=== PATIENT | female | born 1935 | race Caucasian/White ===

== ENCOUNTER 2016-04-26 09:42 | Emergency (ER) | payer MEDICARE, BC ==
[~2016-04-26] VITALS: Ht 165.1 cm; Wt 60.1 kg
[~2016-04-26 09:42] MED LIST: ASPI325T6; ASPI325T6 PO; COZAAR100 MG PO; FERROUS SULFAT200 M1; FOLIC ACID 40400 MCG PO; FOLIC ACID800 MCG PO; IRON325 M1 PO; LEG CRAMPS PO; LOFIBRA160 MG PO; MACRODANTIN100; MELOXICAM; MILK OF MA400 MG/52 PO; MOBIC 7.5MG7.5 MG PO; NEURONTIN100 MG/CAP PO; NO HOME MEDICATIONS; NORCO 325 MG-51 TAB PO; NORCO 325 MG-7.1 TAB PO; PRILOSEC 20MG20 MG PO; REFRESH TEARS 115 ML OP; ROXICODONE 55 MG/TAB PO; SENOKOT8.6 MG PO; TENORMIN100 MG PO; TOPROL XL25 MG PO; TYLENOL 500MG500 MG PO; ULTRAM 50MG TAB50 MG PO; VITAMIN C500 MG PO; XOPENEX HF0.045 MG/A IH; ZETIA 10MG TAB10 MG PO; ZETIA10 MG PO; ZYRTEC 10MG10 MG PO; [UNRECOGNIZED DRUG - OTHER]; [UNRECOGNIZED DRUG - OTHER] PO; evista; quinine; triglyceride med
[2016-04-26 09:46] VITALS: TEMP 98.5
[2016-04-26] MEDS ORDERED: MOBIC 7.5MG7.5 MG (10:54)
[2016-04-26] MEDS ORDERED: [UNRECOGNIZED DRUG - OTHER] (10:55)
[2016-04-26 11:05] LABS: BASO % 0.5 % (0.0-2.0); EOS # 0.2 (0.0-0.7); EOS % 2.9 % (0-4.0); GRAN # 4.8 (1.4-6.5); GRAN % 71.6 % (42.2-75.2); LYMPH # 0.9 (1.2-3.4); LYMPH % 13.9 % (20.0-51.0); MEAN CELL VOLUME 85 fl (80.0-100.0); MEAN CORPUSCULAR HEMOGLOBIN 30 pg (27.0-31.0); MEAN CORPUSCULAR HGB CONC 35 g/dl (33.0-37.0); MEAN PLATELET VOLUME 9.5 fl (7.4-10.4); MONO # 0.7 (0.1-0.6); MONO % 10.6 % (1.7-9.3); PLATELET COUNT 245 K/mm3 (130-400); RED BLOOD COUNT 4.06 M/mm3 (4.10-5.30); REDCELL DISTRIBUTION WIDTH-CV 12.7 % (11.5-14.5); WHITE BLOOD COUNT 6.6 K/mm3 (4.8-10.8)
[2016-04-26 11:06] LABS: HEMATOCRIT 34.6 % (37.0-47.0)
[2016-04-26 11:20] LABS: ADJUSTED CALCIUM 9.4 mg/dL (8.4-10.2); ALBUMIN 3.7 gm/dL (3.5-5.0); BILIRUBIN,TOTAL 0.8 mg/dL (0.0-1.0); CALCIUM 9.2 mg/dL (8.4-10.2); CREATININE, serum 1.66 mg/dL (0.52-1.25); POTASSIUM 4.1 mmol/L (3.4-5.0); TOTAL PROTEIN 6.7 gm/dL (6.4-8.2)
[2016-04-26] MEDS ORDERED: ZOFRAN ODT4 MG PO (12:05)
[2016-04-26 12:07] VITALS: BP 115/97; PULSE 61
[2016-04-26 13:32] LABS: PH 5 (5-8); SQUAMOUS EPITHELIAL 0-2 /hpf; URINE APPEARANCE Clear; URINE BACTERIA None Seen /hpf; URINE BILIRUBIN Negative (NEGATIVE); URINE BLOOD Negative (NEGATIVE); URINE COLOR Straw; URINE GLUCOSE Negative (NEGATIVE); URINE KETONE Negative (NEGATIVE); URINE RBC 0-2 /hpf; URINE UROBILINOGEN Negative (NEGATIVE); URINE WBC 0-2 /hpf
== END 2016-04-26 12:39 | disposition home or self-care (01) ==
LOC: COL.ER 09:42
PROVIDERS: Family Medicine
DX: K52.9 Noninfective gastroenteritis and colitis, unspecified (principal); I10 Essential (primary) hypertension
CPT/HCPCS: J2405; J7030

== ENCOUNTER → 2017-04-11 | Outpatient (CLI) | payer MEDICARE, BC ==
[~2017-04-11] MED LIST changes: +MOBIC 7.5MG7.5 MG; +ZOFRAN ODT4 MG PO; +[UNRECOGNIZED DRUG - OTHER]
== END ==
LOC: MC.RAD 10:38
DX: Z12.31 Encounter for screening mammogram for malignant neoplasm of breast (principal)

== ENCOUNTER → 2017-05-12 | Outpatient (CLI) | payer MEDICARE, BC | LOC: COL.RAD 11:51 | DX: N26.1 Atrophy of kidney (terminal) (principal); N32.89 Other specified disorders of bladder ==

== ENCOUNTER 2018-01-10 09:57 | Inpatient (IN) | payer MEDICARE, BC ==
[~2018-01-10] VITALS: Ht 165.1 cm; Wt 69.8 kg
[2018-01-10] MEDS ORDERED: BENADRYL25 M2 PO (10:08)
[2018-01-10] MEDS ORDERED: PREDNISONE10 MG PO (10:12)
[2018-01-10 10:35] LABS: BASO % 0.3 % (0.0-2.0); EOS # 0.1 (0.0-0.7); EOS % 0.8 % (0-4.0); GRAN % 83.3 % (42.2-75.2); HEMATOCRIT 38.1 % (37.0-47.0); HEMOGLOBIN 12.7 g/dl (12.5-16.0); LYMPH % 8.7 % (20.0-51.0); MEAN CELL VOLUME 94 fl (80.0-100.0); MEAN CORPUSCULAR HEMOGLOBIN 31 pg (27.0-31.0); MEAN CORPUSCULAR HGB CONC 33 g/dl (33.0-37.0); MONO # 0.7 (0.1-0.6); MONO % 5.7 % (1.7-9.3); PLATELET COUNT 164 K/mm3 (130-400); RED BLOOD COUNT 4.07 M/mm3 (4.10-5.30); REDCELL DISTRIBUTION WIDTH-CV 13.8 % (11.5-14.5)
[2018-01-10 10:42] LABS: PROTHROMBIN TIME 11.4 SECONDS (9.7-12.8)
[2018-01-10 10:45] LABS: ALBUMIN 4.2 gm/dL (3.5-5.0); BILIRUBIN,TOTAL 0.9 mg/dL (0.0-1.0); CALCIUM 9.6 mg/dL (8.4-10.2); CREATININE, serum 1.14 mg/dL (0.52-1.25); POTASSIUM 4.6 mmol/L (3.4-5.0); TOTAL PROTEIN 7.1 gm/dL (6.4-8.2)
[2018-01-10 12:48] VITALS: BP 135/74; PULSE 77; TEMP 99.2
[2018-01-10 21:02] VITALS: BP 135/70; PULSE 70; TEMP 98
[2018-01-11 01:03] VITALS: BP 143/78; PULSE 78; TEMP 99.7
[2018-01-11 04:45] VITALS: BP 151/63; PULSE 63; TEMP 98.3
[2018-01-11 06:26] LABS: BASO % 0.2 % (0.0-2.0); EOS # 0.1 (0.0-0.7); EOS % 0.9 % (0-4.0); GRAN # 7.8 (1.4-6.5); GRAN % 83.6 % (42.2-75.2); LYMPH # 0.7 (1.2-3.4); LYMPH % 7.7 % (20.0-51.0); MEAN CELL VOLUME 92 fl (80.0-100.0); MEAN CORPUSCULAR HEMOGLOBIN 31 pg (27.0-31.0); MEAN CORPUSCULAR HGB CONC 33 g/dl (33.0-37.0); MEAN PLATELET VOLUME 8.8 fl (7.4-10.4); MONO # 0.6 (0.1-0.6); MONO % 6.3 % (1.7-9.3); PLATELET COUNT 162 K/mm3 (130-400); RED BLOOD COUNT 3.57 M/mm3 (4.10-5.30)
[2018-01-11 06:39] LABS: CALCIUM 8.7 mg/dL (8.4-10.2); CREATININE, serum 1.01 mg/dL (0.52-1.25); POTASSIUM 4.8 mmol/L (3.4-5.0)
[2018-01-11 09:00] VITALS: BP 133/54; PULSE 76; TEMP 98
[2018-01-11 13:14] VITALS: BP 149/69; PULSE 70; TEMP 98
[2018-01-11 21:18] VITALS: BP 135/67; PULSE 73; TEMP 98
[2018-01-12 00:27] VITALS: BP 132/70; PULSE 65; TEMP 98.2
[2018-01-12 04:40] VITALS: BP 153/77; PULSE 65
[2018-01-12 07:38] VITALS: BP 146/65; PULSE 69; TEMP 97.7
[2018-01-12 12:48] VITALS: BP 141/65; PULSE 68; TEMP 98
[2018-01-12 15:03] VITALS: BP 155/62; PULSE 70; TEMP 97.4
[2018-01-12 20:05] VITALS: BP 150/56; PULSE 74; TEMP 97.8
[2018-01-13 00:03] VITALS: BP 174/66; PULSE 66; TEMP 97.5
[2018-01-13 04:40] VITALS: BP 147/73; PULSE 61; TEMP 97.6
[2018-01-13 08:34] VITALS: BP 152/82; PULSE 75; TEMP 98
[2018-01-13] MEDS ORDERED: PREDNISONE 5MG5 MG PO (09:49)
[2018-01-13 11:43] VITALS: BP 150/72; PULSE 69; TEMP 98.5
== END 2018-01-13 12:25 | disposition home health service (06) | DRG 536 ==
LOC: COL.ER 09:57 → SURG 11:44
PROVIDERS: Emergency Medicine; Internal Medicine
DX: S32.591A Other specified fracture of right pubis, initial encounter for closed fracture (principal); E87.1 Hypo-osmolality and hyponatremia; W18.30XA Fall on same level, unspecified, initial encounter; I10 Essential (primary) hypertension; G62.9 Polyneuropathy, unspecified; J45.909 Unspecified asthma, uncomplicated
CPT/HCPCS: 99222-AI; A9284; G8978-GP; G8979-GP; G8987-GO; G8988-GO; J2270; J7512

== ENCOUNTER → 2018-05-22 | Outpatient (CLI) | payer MEDICARE, BC ==
[~2018-05-22] MED LIST changes: +BENADRYL25 M2 PO; +PREDNISONE 5MG5 MG PO; +PREDNISONE10 MG PO
== END ==
LOC: MC.RAD 11:19
DX: Z12.31 Encounter for screening mammogram for malignant neoplasm of breast (principal)

== ENCOUNTER → 2019-05-04 | Outpatient (CLI) | payer MEDICARE, BC | LOC: COL.VAS 05-03 09:00 | DX: R60.0 Localized edema (principal); I10 Essential (primary) hypertension; G60.9 Hereditary and idiopathic neuropathy, unspecified; N28.9 Disorder of kidney and ureter, unspecified ==

== ENCOUNTER → 2019-06-04 | Outpatient (CLI) | payer MEDICARE, BC | LOC: MC.RAD 11:21 | DX: Z12.31 Encounter for screening mammogram for malignant neoplasm of breast (principal) ==

== ENCOUNTER 2019-11-03 07:06 | Inpatient (IN) | payer MEDICARE, BC ==
[~2019-11-03] VITALS: Ht 165 cm; Wt 71.8 kg
[2019-11-03] MEDS ORDERED: ZETIA 10MG TAB10 MG PO (07:31)
[2019-11-03] MEDS ORDERED: ALDACTONE 25MG25 M1 PO (07:32)
[2019-11-03] MEDS ORDERED: SINEQUAN 1100 MG/CAP PO (07:35)
[2019-11-03] MEDS ORDERED: DUPIXENT300 MG/2 M SQ (07:36)
[2019-11-03] MEDS ORDERED: LASIX 20MG TABL20 MG PO (07:38)
[2019-11-03 08:04] LABS: BASO # 0.1 (0.0-0.2); BASO % 0.6 % (0.0-2.0); EOS # 0.5 (0.0-0.7); GRAN % 77.8 % (42.2-75.2); HEMOGLOBIN 11.4 g/dl (12.5-16.0); LYMPH # 0.8 (1.2-3.4); LYMPH % 8.5 % (20.0-51.0); MEAN CELL VOLUME 88 fl (80.0-100.0); MEAN CORPUSCULAR HEMOGLOBIN 29 pg (27.0-31.0); MEAN CORPUSCULAR HGB CONC 32 g/dl (33.0-37.0); MEAN PLATELET VOLUME 9.1 fl (7.4-10.4); MONO # 0.7 (0.1-0.6); MONO % 7.4 % (1.7-9.3); PLATELET COUNT 275 K/mm3 (130-400); REDCELL DISTRIBUTION WIDTH-CV 13.4 % (11.5-14.5)
[2019-11-03 08:05] LABS: HEMATOCRIT 35.3 % (37.0-47.0)
[2019-11-03 08:15] LABS: ALBUMIN 3.6 gm/dL (3.5-5.0); BILIRUBIN,TOTAL 0.6 mg/dL (0.0-1.0); CALCIUM 9.2 mg/dL (8.4-10.2); CREATININE, serum 2.65 (0.52-1.25); TOTAL PROTEIN 6.5 gm/dL (6.4-8.2)
[2019-11-03 09:53] LABS: COLLECTION METHOD CLEAN CATCH
[2019-11-03 10:02] LABS: MUCOUS Present /lpf; PH 7 (5-8); SQUAMOUS EPITHELIAL None Seen /hpf; URINE APPEARANCE Clear; URINE BACTERIA None Seen /hpf; URINE BILIRUBIN Negative (NEGATIVE); URINE BLOOD Negative (NEGATIVE); URINE COLOR Yellow; URINE GLUCOSE Negative (NEGATIVE); URINE KETONE Negative (NEGATIVE); URINE LEUKOCYTE ESTERASE Negative (NEGATIVE); URINE NITRATE Negative (NEGATIVE); URINE PROTEIN(semi-quant) Negative (NEGATIVE); URINE RBC 0-2 /hpf; URINE UROBILINOGEN Negative (NEGATIVE)
[2019-11-03 13:28] VITALS: BP 137/63; PULSE 71; TEMP 98.1
[2019-11-03 15:40] VITALS: BP 144/72; PULSE 75; TEMP 98.6
--- NOTE | 2019-11-03 16:21 | NUR ---
Assessment completed, alert/oriented, vital signs stable, report severe shooting pain when she moves or tries to walk on that left leg/ X-ray shows pubic ramus fx, [facility] consulted and I have spoke with them on the phone, heart RRR/distal pulses palpable without any signs of impaired circulation, lungs CTA / no resp difficulty, allergies/meds/pharmacy updated and reviewed with patient
[2019-11-03 19:59] VITALS: BP 168/76; PULSE 103; TEMP 98.5
[2019-11-03 23:08] VITALS: BP 143/64; PULSE 85; TEMP 98.8
[2019-11-04 03:33] VITALS: BP 123/58; PULSE 80; TEMP 98.3
--- NOTE | 2019-11-04 04:49 | NUR ---
Patient rested well after about 2300 last night. PRN Dietrich administered for pain. Patient attempted to urinate with the bed whitehead and was unsuccessful. Patient asked about our external catheter and a purewick was attempted. This was unsuccessful as patient stated she was unable to pee. 2 assist from staff was required to transfer to the commode. Patient was able to swivel her feet and was unable to lift her legs to pivot. Patient then voided successfully on the commode. Patient compains of pain when she is moving and states its mostly in the left groin. Pain medication administered x2 this shift. Pain regimen effective. Denies any further needs. Will continue to monitor.
[2019-11-04 06:48] LABS: BASO # 0.1 (0.0-0.2); BASO % 1.3 % (0.0-2.0); EOS # 0.6 (0.0-0.7); EOS % 9.7 % (0-4.0); GRAN % 64.1 % (42.2-75.2); LYMPH # 0.8 (1.2-3.4); LYMPH % 13.4 % (20.0-51.0); MEAN CELL VOLUME 89 fl (80.0-100.0); MEAN CORPUSCULAR HGB CONC 32 g/dl (33.0-37.0); MEAN PLATELET VOLUME 9.3 fl (7.4-10.4); MONO # 0.7 (0.1-0.6); PLATELET COUNT 246 K/mm3 (130-400); RED BLOOD COUNT 3.48 M/mm3 (4.10-5.30); REDCELL DISTRIBUTION WIDTH-CV 13.7 % (11.5-14.5)
[2019-11-04 07:04] LABS: CALCIUM 8.3 mg/dL (8.4-10.2); CREATININE, serum 2.3 (0.52-1.25); POTASSIUM 5.3 mmol/L (3.4-5.0)
[2019-11-04 07:15] LABS: HEMOGLOBIN 9.9 g/dl (12.5-16.0); MEAN CORPUSCULAR HEMOGLOBIN 28 pg (27.0-31.0)
[2019-11-04 07:16] LABS: HEMATOCRIT 30.8 % (37.0-47.0)
[2019-11-04] MEDS ORDERED: XOPENEX HF0.045 MG/A IH (07:39)
--- NOTE | 2019-11-04 08:04 | NUR ---
Assessment completed, alert/oriented, vital signs stable, pain is controlled with [place], patient has been getting up to the BSC with 1-2 assist and is doing quite well, PT/OT to eval and treat today, distal pulses are palpable, hx of some neuropathy but denies any acute changes/ loss of sensation to left lower extrm., heart RRR, K+ 5.3 today, creat 2.3, will discuss plan with hospitalist, patient is sitting up eating breakfast and denies other needs at this time
[2019-11-04 08:13] VITALS: BP 118/55; PULSE 78; TEMP 97.9
--- NOTE | 2019-11-04 10:50 | NUR ---
SW met with patient for intake and to discuss discharge planning. Patient states that she lives in [place], [place], alone with her dog. Patient provides that she utilizes a walker to get around in her home, and before coming to the hospital was independent with ADL's. Patient provides that her PCP is Dr. Johnnie Dennis, recieves medications from [facility] and is able to afford her medications. Patient provides that her DPOA-HC is her daughter Carly [phone]. Patient provides that her plan is to go back home upon discharge. Patient also stated that her friend and daughter Carly have confirmed that they will be staying with her a few nights when she does discharge. Patient states that when she left the hospital before on another occassion she utilized Home Health services from [facility]. Patient states that she really enjoyed their services and would like to be able to utilize them again when she discharges. PT/OT order requested 11/03/19. Patient provides that she feels safe going home and has no questions or concerns about discharge. SW will continue to follow.
[2019-11-04 12:27] VITALS: BP 147/78; PULSE 74; TEMP 98
--- NOTE | 2019-11-04 12:41 | NUR ---
HONORIO contacted health and physical education teacher [facility] Health agency in [place] to provide patient information for referral, contacted [facility] physical [facility] [phone]. Referral documenation faxed over 11/04/19. HONORIO to continue to follow.
[2019-11-04 16:25] VITALS: BP 170/80; PULSE 72; TEMP 97.9
[2019-11-04 19:58] VITALS: BP 170/75; PULSE 54; TEMP 98.9
--- NOTE | 2019-11-04 21:30 | NUR ---
Pt got up to the bedside commode. Pt required two person assistance. Pt is currently back in bed. Pt tolerated transporting very well. Pt call light within reach and bed is in lowest position.
[2019-11-05] VITALS (9 sets, daily range): BP systolic 105–168; BP diastolic 58–88; PULSE 70–105; TEMP 97.9–99.3
[2019-11-05 06:42] LABS: BASO # 0.1 (0.0-0.2); EOS # 0.6 (0.0-0.7); EOS % 7.9 % (0-4.0); GRAN # 4.7 (1.4-6.5); GRAN % 67.7 % (42.2-75.2); LYMPH # 0.9 (1.2-3.4); LYMPH % 12.5 % (20.0-51.0); MEAN CELL VOLUME 90 fl (80.0-100.0); MEAN CORPUSCULAR HGB CONC 32 g/dl (33.0-37.0); MEAN PLATELET VOLUME 9.3 fl (7.4-10.4); MONO # 0.7 (0.1-0.6); MONO % 10.5 % (1.7-9.3); PLATELET COUNT 247 K/mm3 (130-400); REDCELL DISTRIBUTION WIDTH-CV 13.5 % (11.5-14.5)
[2019-11-05 06:43] LABS: HEMATOCRIT 30.5 % (37.0-47.0); HEMOGLOBIN 9.8 g/dl (12.5-16.0); MEAN CORPUSCULAR HEMOGLOBIN 29 pg (27.0-31.0)
[2019-11-05 06:44] LABS: CALCIUM 8.3 mg/dL (8.4-10.2); CREATININE, serum 1.94 (0.52-1.25); POTASSIUM 5.2 mmol/L (3.4-5.0)
--- NOTE | 2019-11-05 09:09 | NUR ---
Fall precautions initiated.
--- NOTE | 2019-11-05 11:47 | NUR ---
Patient alert and oriented, answers questions appropriately. See assessment. C/o mild pain to pelvis, 06/04. Refuses pain medications, states "yesterday when I took it, it made me vomit". Reviewed with patient to take pain medications with food or milk, continues to refuse at this time. No other c/o at this time.
--- NOTE | 2019-11-05 16:17 | NUR ---
Music Specialist met with patient to discuss discharge planning. Patient wishes to go home but understands PT/OT recommendation for post acute rehab. Patient is agreeable to go to [facility] as screen was put in over the weekend. HONORIO collaborated with Naomi IPR Director who advised they can accept patient tomorrow. HONORIO will continue to follow.
--- NOTE | 2019-11-05 19:21 | NUR ---
Received report from PAUL Gaxiola. Pt has her call light within reach. Pt requested warm blankets at this time and was given warm blankets at this time. Pt has he call light and her cell phone within reach.
--- NOTE | 2019-11-05 20:00 | NUR ---
Pt temperature was over 99 when the aide checked the pt temperature. Pt was assessed at this time. Pt was encourged to cough and deep breathe. Pt temperature was assessed at this time and it was 98.6. Pt is currently in bed and has no complaints at this time. Pt has her call light within reach and her bed is in lowest position . Pt did say that she was nervous that she would get out of bed confused at night. I reminded her about the bed alarm and that we would hear the alarm go off and would be there to assists her.
--- NOTE | 2019-11-05 21:12 | NUR ---
Pt currently resting in bed. Pt stated she was in pain and requested something for pain. Pt was given pain medication at this time and she applesauce to help her with nausea. Pt has not had nausea but had some yesterday and she was nervous about having nausea. Pt ate her applesauce and is currently sitting up in bed. Pt has her call light within reach and her bed is in lowest positon and her bed alarm is on .
[2019-11-06 03:31] VITALS: BP 121/66; PULSE 73; TEMP 97.7
[2019-11-06 06:49] LABS: BASO # 0.1 (0.0-0.2); BASO % 1.1 % (0.0-2.0); EOS # 0.6 (0.0-0.7); EOS % 10.3 % (0-4.0); GRAN # 3.4 (1.4-6.5); GRAN % 61.6 % (42.2-75.2); LYMPH # 0.8 (1.2-3.4); LYMPH % 15.2 % (20.0-51.0); MEAN CELL VOLUME 90 fl (80.0-100.0); MEAN CORPUSCULAR HGB CONC 32 g/dl (33.0-37.0); MEAN PLATELET VOLUME 9.2 fl (7.4-10.4); MONO # 0.6 (0.1-0.6); MONO % 11.4 % (1.7-9.3); PLATELET COUNT 245 K/mm3 (130-400); RED BLOOD COUNT 3.42 M/mm3 (4.10-5.30); REDCELL DISTRIBUTION WIDTH-CV 13.7 % (11.5-14.5)
[2019-11-06 06:50] LABS: CALCIUM 8.6 mg/dL (8.4-10.2); CREATININE, serum 1.88 (0.52-1.25); HEMATOCRIT 30.9 % (37.0-47.0); HEMOGLOBIN 9.8 g/dl (12.5-16.0); MAGNESIUM 1.1 mg/dL (1.6-2.3); MEAN CORPUSCULAR HEMOGLOBIN 29 pg (27.0-31.0); POTASSIUM 4.9 mmol/L (3.4-5.0)
[2019-11-06 08:06] VITALS: BP 133/60; PULSE 85; TEMP 97.9
[2019-11-06] MEDS ORDERED: MIRALAX PA17 GM/Dose PO (09:03)
[2019-11-06] MEDS ORDERED: NORCO 325 MG-51 TAB PO (09:04)
[2019-11-06 11:15] VITALS: BP 129/70; PULSE 75; TEMP 98.8
--- NOTE | 2019-11-06 12:03 | NUR ---
Director Business Management collaborated with Naomi, [facility] Director who advised patient will discharge to [facility] today. SW attempted to contact patient's daughter, Carly but number rang with a busy signal. HONORIO met with patient who is still in agreement with discharge to [facility]. Patient states she has contacted her friend, Jessica who is like a daughter to her, to update her on discharge. Patient states Jessica is her daughter's best friend. Patient states Jessica has been caring for her dog while she's gone. HONORIO contacted [facility] to provide update on discharge. No additional needs at this time.
[2019-11-06 13:53] VITALS: BP 129/70; PULSE 75; TEMP 98.8
--- NOTE | 2019-11-06 14:10 | NUR ---
Report given to NAHUM Saez RN. Transferred to [facility] at 1412.
[2019-11-07] MEDS ORDERED: SINEQUAN 1100 MG/CAP PO (03:41)
== END 2019-11-06 14:12 | DRG 536 ==
LOC: COL.ER 07:06 → SURG 10:46
PROVIDERS: Family Medicine; Physician Assistant; ADMIT Internal Medicine
DX: S32.592A Other specified fracture of left pubis, initial encounter for closed fracture (principal); N17.9 Acute kidney failure, unspecified; M19.90 Unspecified osteoarthritis, unspecified site; K21.9 Gastro-esophageal reflux disease without esophagitis; E78.5 Hyperlipidemia, unspecified; J45.909 Unspecified asthma, uncomplicated; S32.302A Unspecified fracture of left ilium, initial encounter for closed fracture; G62.9 Polyneuropathy, unspecified; I12.9 Hypertensive chronic kidney disease with stage 1 through stage 4 chronic kidney disease, or unspecified chronic kidney disease; N18.9 Chronic kidney disease, unspecified; L29.9 Pruritus, unspecified; E87.5 Hyperkalemia; E83.42 Hypomagnesemia; W19.XXXA Unspecified fall, initial encounter
CPT/HCPCS: 99222-AI; 99231-AI; 99239; J1644; J2270; J2405; J3475; J7030

== ENCOUNTER 2019-11-06 10:50 | Inpatient (IN) | payer MEDICARE, BC ==
[~2019-11-06] VITALS: Ht 165.1 cm; Wt 66.8 kg
[~2019-11-06 10:50] MED LIST changes: +ALDACTONE 25MG25 M1 PO; +DUPIXENT300 MG/2 M SQ; +LASIX 20MG TABL20 MG PO; +MIRALAX PA17 GM/Dose PO; +SINEQUAN 1100 MG/CAP PO
[2019-11-06 14:36] VITALS: BP 135/67; PULSE 70; TEMP 98.1
--- NOTE | 2019-11-06 16:20 | NUR ---
Patient arrived to room 336 and is resting in recliner, call light in reach and chair alarm set.
--- NOTE | 2019-11-06 17:56 | NUR ---
Patient currently resting in recliner, with a cushion on the seat and legs elevated with call light in reach. Initial assessment completed and 5 page assessment completed. Patient denies pain. Patient very appreciative of staff and is in a pleasent mood. Patient denies any questions at this time.
[2019-11-07] MEDS ORDERED: SINEQUAN 1100 MG/CAP PO (03:41)
[2019-11-07 05:37] VITALS: BP 127/67; PULSE 70; TEMP 97.4
--- NOTE | 2019-11-07 06:08 | NUR ---
PT HAD UNEVENTFUL NIGHT. SLEPT WELL.
--- NOTE | 2019-11-07 08:15 | NUR ---
Patient resting in bed, call light in reach and bed alarm is set. Patient reports 0/10 pain at this time. Will continue to monitor. Independent with eating her meal this am.
--- NOTE | 2019-11-07 14:22 | NUR ---
Wound culture completed to left arm and sent to lab. Patient currently resting in recliner, call light in reach and alarm set.
--- NOTE | 2019-11-07 14:26 | NUR ---
Patient's items were delivered to patient from friend. Meds were placed in refrigerator.
[2019-11-07 16:27] VITALS: BP 150/83; PULSE 97; TEMP 98.1
--- NOTE | 2019-11-07 16:47 | NUR ---
Seeing Eye Dog Trainer completed initial intake with patient as she is new to [facility]. Patient lives alone in [place] and sees Dr. Dennis for primary care. Patient obtains medications at [facility] pharmacy with no difficulties. Patient reports she has three walkers, a shower seat, grab bars, and a bedside commode at home. Patient has Advance Directives in the EMR which designate her daughter, Carly (ph#[phone]). HONORIO reviewed and provided copy of team conference notes to patient. HONORIO advised that discharge date is set for 11/14/19 and the team is recommending Home Health PT/OT. Patient would like to use [facility]. HONORIO faxed referral. HONORIO contacted patient's daughter, Carly and scheduled family meeting for 11/12/19 @ 1300. HONORIO provided meeting time and date to Naomi, [facility] Director. HONORIO will continue to follow.
--- NOTE | 2019-11-07 20:27 | NUR ---
Patient attended all therapies today and was able to tolerate pain using her Hydrocodone with no nausea reported. Discussed Meds with Dr. Barbosa wants to leave patient at Atenolol BID not Q Day; Doxepin was DC'd due to patient requesting not to take when discharged from Surgical prior to coming to [facility] per Dr. Barbosa. Patient's friend delivered her home med of Dupixent and it is in the refrigerator to be given tomorrow (See EMR). VTE Heprin was started today. Patient received some clothes from her friend and SENIOR COURTROOM CLERK assisted her with unpacking her bags. Patient currently resting in bed, call light in reach. She was a one CGA with walking with walker to the bathroom and then back to the bed. Patient was able to take her clothes off and on by herself taking more time. Patient was a set up for putting her night gown on and only required this nurse to help her tie the tie in the back for her. Reported off to night nurse.
--- NOTE | 2019-11-07 21:00 | NUR ---
PT RESTING IN BED. VERY TALKATIVE BUT PLEASANT AND MOTIVATED. REVIEWED SUCCESSES TODAY. CALL LIGHT IN REACH BED ALARM SET.
[2019-11-08 06:15] VITALS: BP 151/68; PULSE 71; TEMP 97.1
--- NOTE | 2019-11-08 08:11 | NUR ---
UPON ENTRY TO THE ROOM THIS MORNING THE PATIENT IS LAYING IN BED WITH THE LIGHTS OFF AND AN EMESIS BASIN ON HER LAP. PATIENT STATES THAT SHE BECAME NAUSEATED THIS MORNING AFTER TAKING PAIN MEDICATION. PATIENT STATES THAT SHE WAS ABLE TO DRINK A CUP OF JUICE AND A FEW BITES OF FRUIT BEFORE BECOMING NAUSEATED. PATIENT REFUSED THE REST OF BREAKFAST. COLD CLOTH APPLIED TO FOREHEAD. NOTIFIED. VORB ZOFRAN 4MG PO Q6H PRN. ANTINAUSEA MEDICATION ADMINISTERED AT THIS TIME. [facility].
[2019-11-08 17:18] VITALS: BP 110/74; PULSE 71; TEMP 98.1
--- NOTE | 2019-11-08 19:00 | NUR ---
PATIENT HAD A SECOND BOUT OF NAUSEA AND DRY HEAVES IN AFTERNOON THERAPY AFTER TAKING A HALF TABLET OF NORCO. PATIENT AMBULATES WITH SBA TO FOR BALANCE. PATIENT ABLE TO MANAGE LOWER EXTREMITY DRESSING BEFORE AND AFTER TOILETING. PATIENT ABLE TO DO PERICARE. PATIENT RESTING IN BED AT THIS TIME WITH ALARM ON. REPORT GIVEN TO PAUL TAVERAS.
--- NOTE | 2019-11-08 20:00 | NUR ---
DECREASED ROM/STRENGTH TO BLE DUE TO PAIN FROM PELVIC FX, DENIES NUMBNESS/TINGLING TO BLE AT THIS TIME. DENIES CHEST PAIN/SHORTNESS OF BREATH/NAUSEA AT THIS TIME.
[2019-11-08 20:53] VITALS: BP 163/70
--- NOTE | 2019-11-08 22:30 | NUR ---
PATIENT ASKED IF SHE WAS GETTING HER DOXEPIN MED, INFORMED PATIENT WILL CHECK ON ORDERS. BED ALARM ON. NO OTHER NEEDS REPORTED.
--- NOTE | 2019-11-09 02:30 | NUR ---
PATIENT SLEEPING, DOES NOT AWAKEN WHEN DOOR TO ROOM IS OPENED BY STAFF. BREATHING IS NONLABORED AND EVEN. BED ALARM ON.
[2019-11-09 05:33] VITALS: BP 129/63; PULSE 70; TEMP 97.7
[2019-11-09 07:16] LABS: BASO # 0.1 (0.0-0.2); BASO % 1.4 % (0.0-2.0); EOS # 0.5 (0.0-0.7); EOS % 8.8 % (0-4.0); GRAN # 3.4 (1.4-6.5); GRAN % 59.4 % (42.2-75.2); LYMPH % 17.3 % (20.0-51.0); MEAN CELL VOLUME 88 fl (80.0-100.0); MEAN CORPUSCULAR HGB CONC 32 g/dl (33.0-37.0); MEAN PLATELET VOLUME 9.4 fl (7.4-10.4); MONO # 0.7 (0.1-0.6); MONO % 12.6 % (1.7-9.3); PLATELET COUNT 275 K/mm3 (130-400); RED BLOOD COUNT 3.37 M/mm3 (4.10-5.30); REDCELL DISTRIBUTION WIDTH-CV 13.5 % (11.5-14.5)
[2019-11-09 07:22] LABS: CALCIUM 9.2 mg/dL (8.4-10.2); HEMATOCRIT 29.8 % (37.0-47.0); HEMOGLOBIN 9.5 g/dl (12.5-16.0); MAGNESIUM 1.2 mg/dL (1.6-2.3); MEAN CORPUSCULAR HEMOGLOBIN 28 pg (27.0-31.0); POTASSIUM 4.9 mmol/L (3.4-5.0)
--- NOTE | 2019-11-09 07:37 | NUR ---
PATIENT RESTING IN BED DURING CHANGE OF SHIFT REPORT GIVEN TO DAY SHIFT NURSEAVNI. BED ALARM ON.
--- NOTE | 2019-11-09 08:44 | NUR ---
PT STAND BY ASSIST TO BATHROOM. UTILIZED WALKER. PT HAD HESITANT GAIT, REQUIRED NO PROMPTING, PT PULLED DOWN HER OWN BRIEF, PROVIDED HER OWN CARLOS CARE, AND PULLED HER BRIEF UP BY HERSELF. PT AMBULATED BACK TO BED AND PULLED UP HER LEGS BY HERSELF.
--- NOTE | 2019-11-09 15:59 | NUR ---
Machine Heddle Cleaner met with the patient to follow up. The patient states she is getting execeptional care and is happy with the progress she is making. She is ready to get home to her dog. She states her friend is taking care of her dog while she is here. The patient thanked SW for visting with her. The patient had no questions or concerns at this time.
[2019-11-09 17:05] VITALS: BP 147/66; PULSE 70; TEMP 97.7
--- NOTE | 2019-11-09 19:00 | NUR ---
PAIN AND NAUSEA MEDICATIONS ADMINISTERED NEEDED DURING MY SHIFT. PATIENT ABLE TO TOLERATE MORE PO INTAKE TOWARDS THE END OF THE SHIFT. PATIENTS LEFT FOREARM CLEANED WITH STERILE SALINE AND RE-DRESSED WITH NON-ADHERANT PAD, SOFT ROLL AND COBAN. PATIENT RESTING IN BEDSIDE CHAIR. CHAIR ALAMR ON. CALL LIGHT IN REACH. REPORT GIVEN TO PAUL TAVERAS.
--- NOTE | 2019-11-09 20:00 | NUR ---
REPORT L HIP PAIN WITH MOVEMENT WHEN AMBULATING TO BATHROOM, DENIES NUMBNESS/TINGLING TO EXTREMITIES. DENIES CHEST PAIN/SHORTNESS OF BREATH. REPORTS PASSING FLATUS, DENIES NAUSEA AT THIS TIME. BED ALARM ON. AGREED TO TAKE TYLENOL WITH HS MEDS AND STOOL SOFTENER.
[2019-11-09 21:45] VITALS: BP 145/69
--- NOTE | 2019-11-10 00:24 | NUR ---
PATIENT SLEEPING, DOES NOT AWAKEN WHEN DOOR TO ROOM IS OPENED BY STAFF. BREATHING IS NONLABORED AND EVEN. BED ALARM ON.
[2019-11-10 05:42] VITALS: BP 122/58; PULSE 70; TEMP 98.1
--- NOTE | 2019-11-10 07:33 | NUR ---
PATIENT RESTING IN BED DURING CHANGE OF SHIFT REPORT GIVEN TO DAY SHIFT NURSEJOHN. BED ALARM ON.
--- NOTE | 2019-11-10 08:00 | NUR ---
Patient sitting up in bed finishing up breakfast. A&Ox3. VSS. Denies pain and discomfort. Nurse assisted patient to bathroom and OT walked in as patient walking back to the bed. No further needs expressed from the patient. Call light within reach. Bed alarm on
--- NOTE | 2019-11-10 17:11 | NUR ---
Patient had an uneventful day. Tolerated working with PT/OT and nursing staff assisted patient to bathroom with gait belt and walker when requested. Patient was able to get herself back into bed with minimal assist. Pain medication given when requested. VSS. A&Ox3. Had complaints of nausea, did not request medication.No further needs expressed from patient. Call light within reach. Bed alarm on.
[2019-11-10 17:42] VITALS: BP 196/65; PULSE 63; TEMP 97.1
[2019-11-10 18:03] VITALS: BP 125/64; PULSE 73
--- NOTE | 2019-11-10 20:13 | NUR ---
CONTINUES WITH L HIP PAIN WITH WALKING, DENIES NUMBNESS/TINGLING TO EXTREMITIES, DENIES CHEST PAIN/SHORTNESS OF BREATH. BED ALARM ON.
[2019-11-10 20:38] VITALS: BP 125/76; PULSE 73
--- NOTE | 2019-11-11 00:56 | NUR ---
RESTING WITH EYES CLOSED, BREATHING NONLABORED/EVEN. DOES NOT AWAKEN WHEN DOOR TO ROOM IS OPENED. BED ALARM ON.
[2019-11-11 04:21] VITALS: BP 112/57; PULSE 70; TEMP 98
--- NOTE | 2019-11-11 05:14 | NUR ---
Sleeping, does not wake when room entered by staff. Breathing nonlabored and even. Bed alarm on.
--- NOTE | 2019-11-11 07:38 | NUR ---
PATIENT UP IN CHAIR DURING CHANGE OF SHIFT REPORT GIVEN TO DAY SHIFT NURSELEE. CHAIR ALARM ON.
[2019-11-11 07:54] VITALS: BP 114/56; PULSE 72
--- NOTE | 2019-11-11 08:07 | NUR ---
Patient resting in recliner, call light in reach and alarm set. Patient reports 0/10 pain when moving 5-6/10 pain level. Given PRN Tylenol this AM.
--- NOTE | 2019-11-11 12:57 | NUR ---
Patient was seen by Dr. Barbosa this morning. Pain meds were discussed and Dr. Barbosa reported to patient that he had cut the Ultram dose in half and added Zofran to help with nausea. Patient has decided to try to use the ultram this afternoon to see if she is able to tolerate it better. Will continue to monitor.
[2019-11-11 17:59] VITALS: BP 118/62; PULSE 66; TEMP 98.2
--- NOTE | 2019-11-11 18:50 | NUR ---
PATIENT RESTING IN BED DURING CHANGE OF SHIFT REPORT RECEIVED FROM DAY SHIFT NURSE. BED ALARM ON.
--- NOTE | 2019-11-11 20:00 | NUR ---
CONTINUES WITH BLE SWELLING, DENIES NUMBNESS/TINGLING TO EXTREMITIES. REPORTS PAIN TO LEFT POST HIP AREA WITH WALKING, AGREED TO TAKE TYLENOL FOR PAIN MANAGEMENT TONIGHT WITH HS MEDS. DENIES CHEST PAIN/SHORTNESS OF BREATH AT THIS TIME. BED ALARM ON.
[2019-11-11 21:36] VITALS: BP 134/55
--- NOTE | 2019-11-12 02:00 | NUR ---
PATIENT SLEEPING, DOES NOT WAKE WHEN DOOR TO ROOM IS OPENED BY STAFF. BED ALARM ON.
[2019-11-12 04:16] VITALS: BP 137/64; PULSE 70; TEMP 98.1
--- NOTE | 2019-11-12 07:00 | NUR ---
Pt resting in bed, bedside shift report received from PAUL Zacarias. Pt resting in bed, denies needs, will continue to monitor.
--- NOTE | 2019-11-12 07:21 | NUR ---
Patient resting in bed during change of shift report given to day shift nurse, Cat and orientee Marisol. Bed alarm on.
--- NOTE | 2019-11-12 13:07 | NUR ---
Assessment charted. PT doing well, questions regarding discharge plan. Otherwise doing well. Dressing changed to LFA. Denies pain now, PRN pain meds given with zofran this morning per request. Will continue to monitor.
--- NOTE | 2019-11-12 13:25 | NUR ---
[facility] the patient for services. HONORIO then attended a patient/family conference call with patient and her daughter, Carly. Also presente was IPR Director, PT, and OT. IPR Director started by explaining the purpose of the meeting. PT/OT then discussed the patient's progress and the team's recommendation for a discharge for tomorrow, 11/12, now instead of Tuesday. The patient was agreeable to this plan and the patient's daughter was also supportive of the plan. HONORIO [facility]. Lyudmila reports that they will be able to come out and start services for the patient on . HONORIO to inform the patient and will continue to follow.
[2019-11-12 15:50] VITALS: BP 125/60; PULSE 67; TEMP 98.1
--- NOTE | 2019-11-12 16:31 | NUR ---
SW met with the patient and presented and read the IM form outloud to the patient. The patient verbalized understanding and gave SW approval to sign the form on her behalf. SW provided her with a copy.
--- NOTE | 2019-11-12 18:28 | NUR ---
Pt has done well over shift, anticipating discharge tomorrow. Resting in bed now, able to get self changed into gown for nightime but enjoyed the company. Denies needs, will give bedside shift report to nightshift nurse who will resume care.
--- NOTE | 2019-11-12 20:10 | NUR ---
At time of assessment, patient is awake in bed. She ambulates independently in room. She is alert and oriented, heart sounds are normal/regular, lung are clear. She has edema present in lower extremities with 1+ pitting. No pain is present at this time. No new concerns, will continue to monitor.
--- NOTE | 2019-11-13 05:33 | NUR ---
Patient has had an uneventful and restful night with no complaints. She states she has been up two times to use the restroom.
[2019-11-13 06:00] VITALS: BP 118/62; PULSE 67; TEMP 98.2
[2019-11-13 06:58] LABS: BASO # 0.1 (0.0-0.2); BASO % 1.2 % (0.0-2.0); EOS # 0.4 (0.0-0.7); EOS % 5.6 % (0-4.0); GRAN # 4.4 (1.4-6.5); GRAN % 64.4 % (42.2-75.2); LYMPH # 1.1 (1.2-3.4); LYMPH % 16.1 % (20.0-51.0); MEAN CELL VOLUME 87 fl (80.0-100.0); MEAN CORPUSCULAR HEMOGLOBIN 28 pg (27.0-31.0); MEAN CORPUSCULAR HGB CONC 32 g/dl (33.0-37.0); MEAN PLATELET VOLUME 9.4 fl (7.4-10.4); MONO # 0.8 (0.1-0.6); MONO % 12.1 % (1.7-9.3); PLATELET COUNT 276 K/mm3 (130-400); RED BLOOD COUNT 3.61 M/mm3 (4.10-5.30); REDCELL DISTRIBUTION WIDTH-CV 13.5 % (11.5-14.5)
[2019-11-13 07:01] LABS: HEMATOCRIT 31.4 % (37.0-47.0)
[2019-11-13 07:23] LABS: CALCIUM 9.1 mg/dL (8.4-10.2); CREATININE, serum 2.2 (0.52-1.25); MAGNESIUM 1.2 mg/dL (1.6-2.3); POTASSIUM 4.7 mmol/L (3.4-5.0)
[2019-11-13] MEDS ORDERED: TENORMIN100 MG PO (09:00)
[2019-11-13] MEDS ORDERED: NEURONTIN100 MG/CAP PO (09:01)
[2019-11-13] MEDS ORDERED: SINEQUAN 5050 MG/CAP PO (09:01)
[2019-11-13] MEDS ORDERED: ZOFRAN 4MG T4 MG/TAB PO (09:02)
[2019-11-13] MEDS ORDERED: ULTRAM 50MG TAB50 MG PO (09:02)
--- NOTE | 2019-11-13 09:20 | NUR ---
The patient is to discharge back home today, 11/12, with home health services for long term/PT/OT through [facility]. HONORIO contacted and faxed the patient's discharge orders to Lyudmila at [facility]. No additional needs at this time.
--- NOTE | 2019-11-13 13:13 | NUR ---
Patient Health Summary, Discharge Summary, and Home Meds printed and reviewed with patient. Stressed importance of follow up appointments. Belongings gathered by RADHA Mac including 2 rings, set of earrings, call phone, charger operator helper, walker, shoes, clothes and dirty laundry. Patient transported via wheelchair by RADHA/Estefania and PAUL/Nadja and seatbelted for ride home. Patient denied any questions.
[2019-11-13] MEDS ORDERED: MAG-OX 400400 MG/TAB PO (13:53)
--- NOTE | 2019-11-13 14:32 | NUR ---
Called and set up follow up appointment with Dr. Smith for 11/29/19 at 3:30 PM. This was communicated to patient.
== END 2019-11-13 13:05 | disposition home health service (06) | DRG 560 ==
PROVIDERS: ADMIT Internal Medicine
DX: S32.592D Other specified fracture of left pubis, subsequent encounter for fracture with routine healing (principal); N17.9 Acute kidney failure, unspecified; I12.9 Hypertensive chronic kidney disease with stage 1 through stage 4 chronic kidney disease, or unspecified chronic kidney disease; N18.9 Chronic kidney disease, unspecified; K21.9 Gastro-esophageal reflux disease without esophagitis; G62.9 Polyneuropathy, unspecified; E83.42 Hypomagnesemia; E87.5 Hyperkalemia; M19.90 Unspecified osteoarthritis, unspecified site; J45.909 Unspecified asthma, uncomplicated; L50.8 Other urticaria; L29.9 Pruritus, unspecified; E78.5 Hyperlipidemia, unspecified; W18.30XD Fall on same level, unspecified, subsequent encounter; Z79.1 Long term (current) use of non-steroidal anti-inflammatories (NSAID); Z79.891 Long term (current) use of opiate analgesic; Z90.710 Acquired absence of both cervix and uterus; Z96.653 Presence of artificial knee joint, bilateral
CPT/HCPCS: 99222-AI; 99232-AI; J1644

== ENCOUNTER → 2020-07-03 | Outpatient (CLI) | payer MEDICARE, BC ==
[~2020-07-03] MED LIST changes: +APRESOLINE 25MG25 MG PO; +BONINE25 MG PO; +COLACE 100100 MG/CAP PO; +MAG-OX 400400 MG/TAB PO; +PREDFORTE10ML; +PREDFORTE5ML OU; +SINEQUAN 5050 MG/CAP PO; +SINGULAIR 110 MG/TAB PO; +ZOFRAN 4MG T4 MG/TAB PO
== END ==
LOC: MC.RAD
DX: Z12.31 Encounter for screening mammogram for malignant neoplasm of breast (principal)

== ENCOUNTER 2020-11-24 11:48 | Observation (INO) | payer MEDICARE, BC ==
[~2020-11-24] VITALS: Ht 152.4 cm; Wt 56.8 kg
[~2020-11-24 11:48] MED LIST changes: -APRESOLINE 25MG25 MG PO; -BONINE25 MG PO; -COLACE 100100 MG/CAP PO; -PREDFORTE10ML; -PREDFORTE5ML OU; -SINGULAIR 110 MG/TAB PO
[2020-11-24 12:52] LABS: COLLECTION METHOD CLEAN CATCH
[2020-11-24 12:58] LABS: BASO # 0.1 (0.0-0.2); BASO % 0.8 % (0.0-2.0); EOS # 0.1 (0.0-0.7); GRAN # 4.5 (1.4-6.5); GRAN % 75.4 % (42.2-75.2); HEMOGLOBIN 11.4 g/dl (12.5-16.0); LYMPH # 0.8 (1.2-3.4); LYMPH % 12.5 % (20.0-51.0); MEAN CELL VOLUME 88 fl (80.0-100.0); MEAN CORPUSCULAR HEMOGLOBIN 28 pg (27.0-31.0); MEAN CORPUSCULAR HGB CONC 32 g/dl (33.0-37.0); MEAN PLATELET VOLUME 8.9 fl (7.4-10.4); MONO # 0.5 (0.1-0.6); PLATELET COUNT 251 K/mm3 (130-400); REDCELL DISTRIBUTION WIDTH-CV 13.7 % (11.5-14.5)
[2020-11-24 12:59] LABS: HEMATOCRIT 35.9 % (37.0-47.0)
[2020-11-24 13:01] LABS: PH 6 (5-8); SQUAMOUS EPITHELIAL None Seen /hpf; URINE APPEARANCE Clear; URINE BACTERIA None Seen /hpf; URINE BILIRUBIN Negative (NEGATIVE); URINE BLOOD Negative (NEGATIVE); URINE COLOR Straw; URINE GLUCOSE Negative (NEGATIVE); URINE KETONE Negative (NEGATIVE); URINE LEUKOCYTE ESTERASE 1+ (NEGATIVE); URINE NITRATE Negative (NEGATIVE); URINE PROTEIN(semi-quant) Negative (NEGATIVE); URINE RBC None Seen /hpf; URINE UROBILINOGEN Negative (NEGATIVE)
[2020-11-24 13:11] LABS: ALBUMIN 4.1 gm/dL (3.5-5.0); BILIRUBIN,TOTAL 0.3 mg/dL (0.0-1.0); C-REACTIVE PROTEIN 0.6 mg/dL (0.0-0.9); CALCIUM 9.3 mg/dL (8.4-10.2); CREATININE, serum 1.28 (0.52-1.25); POTASSIUM 4.5 mmol/L (3.4-5.0); TOTAL PROTEIN 6.8 gm/dL (6.4-8.2)
[2020-11-24 15:06] VITALS: BP 176/88; PULSE 57
[2020-11-24] MEDS ORDERED: BONINE25 MG PO (15:10)
[2020-11-24] MEDS ORDERED: NEURONTIN100 MG/CAP PO (18:08)
[2020-11-24] MEDS ORDERED: SINGULAIR 110 MG/TAB PO (18:11)
[2020-11-24] MEDS ORDERED: APRESOLINE 25MG25 MG PO (18:13)
[2020-11-24] MEDS ORDERED: COLACE 100100 MG/CAP PO (18:13)
[2020-11-24 20:00] VITALS: BP 143/73; PULSE 57; TEMP 98.4
[2020-11-24] MEDS ORDERED: PREDFORTE10ML ×2 (21:13→21:26)
--- NOTE | 2020-11-24 22:38 | NUR ---
Pt alert and oriented, able to converse freely. Pt reports dizziness with movement during assessment and repositioning. 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 Pt denies pain at this time. 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 Pt has chronic back pain, denies needing pain medication at this time. Pt's blood pressure medications were held this evening due to low heart rate and blood pressure within range. Provider notified.
[2020-11-24 23:49] VITALS: BP 148/75; PULSE 79; TEMP 98.6
[2020-11-25] VITALS (9 sets, daily range): BP systolic 86–186; BP diastolic 49–115; PULSE 57–91; TEMP 97.6–98.4
--- NOTE | 2020-11-25 04:30 | NUR ---
Pt able to rest during night. One reported episode of vertigo during shift assessment at beginning of shift. Pt denied pain, no prn pain medications . Pt oriented to own ability, free from injury during shift. Pt able to converse freely and express needs.
[2020-11-25 07:14] LABS: BASO # 0.1 (0.0-0.2); BASO % 0.9 % (0.0-2.0); EOS # 0.2 (0.0-0.7); EOS % 2.7 % (0-4.0); GRAN # 3.8 (1.4-6.5); GRAN % 68.4 % (42.2-75.2); LYMPH % 18.2 % (20.0-51.0); MEAN CELL VOLUME 88 fl (80.0-100.0); MEAN CORPUSCULAR HEMOGLOBIN 28 pg (27.0-31.0); MEAN CORPUSCULAR HGB CONC 32 g/dl (33.0-37.0); MEAN PLATELET VOLUME 9.1 fl (7.4-10.4); MONO # 0.5 (0.1-0.6); MONO % 9.3 % (1.7-9.3); PLATELET COUNT 243 K/mm3 (130-400); RED BLOOD COUNT 3.94 M/mm3 (4.10-5.30); REDCELL DISTRIBUTION WIDTH-CV 13.9 % (11.5-14.5)
[2020-11-25 07:17] LABS: HEMATOCRIT 34.6 % (37.0-47.0)
[2020-11-25 07:23] LABS: CALCIUM 9.3 mg/dL (8.4-10.2); CREATININE, serum 1.56 (0.52-1.25); POTASSIUM 4.8 mmol/L (3.4-5.0)
--- NOTE | 2020-11-25 09:22 | NUR ---
PT DENIES ANY PAIN. NOT SEVERE DIZZINESS TODAY. PT ORTHOSTATICS COMPELTED. BP RISES WITH ORTHOSTATIC CHANGES. NO OTHER CONCERNS AT THIS TIME. WILL REPORT TO PROVIDER WHO PLANS ON SEEING PT FIRST.
--- NOTE | 2020-11-25 10:23 | NUR ---
SW's met with the patient and her friend, Naomi, to discuss discharge plan. The patient lives alone in [place]. She states that she does not have any family that live in town, but that she has good friend support. She reports independence with ADLs and has a walker. The patient's PCP was Dr. Dennis, but she states that she has switched to Dr. Neymar Shah and her first appointment with him is on 12/18. She receives her medications from [facility] and she reports no difficulties obtaining her meds. The patient's DPOA-HC is in EMR. It designates her late . The first alternate is her daughter, Carly Hernandes (ph#[phone]). Carly lives in [place]. The patient plans to return home upon discharge. SW discussed home health services. The patient reports that she had home health in the past from [facility] and that they were wonderful. She states that she is unsure if she wants or needs services at this time. HONORIO asked the PA for PT/OT to be ordered. SW contacted the patient's daughter, Carly, to review the above. Carly is unsure how the patient will do alone at home upon discharge. She would like to be kept up to date on what therapy recommends. She may stay with the patient upon discharge. SW to continue to follow. *Discharge plan: Tentatively home. Awaiting therapy's recs*
--- NOTE | 2020-11-25 10:50 | NUR ---
Initial visit; Patient very friendly and states she is much better today. Patient's close friend was present and joined Sewer Connector and La in prayer and conversation. Sewer Connector will keep La in her prayers.
[2020-11-25] MEDS ORDERED: PREDFORTE5ML OU (17:31)
--- NOTE | 2020-11-25 22:43 | NUR ---
PT ALERT AND ORIENTED, ABLE TO CONVERSE FREELY. PT HAS IRREGULAR HEART RATE NOTED BY TELEMETRY DURING VERIFICATION. LEADS ARE IN PLACE. PT VITALS ARE STABLE AT THIS TIME. PT ABLE TO STAND FOR BEDSIDE COMMODE. TOLERATED WELL, PT STATES, "STILL NOT RIGHT" BUT DENIES VERTIGO AT THIS TIME. PT CALL LIGHT WITHIN REACH.
[2020-11-26 04:32] VITALS: BP 118/74; PULSE 59; TEMP 97.4
--- NOTE | 2020-11-26 05:10 | NUR ---
PT ALERT AND ORIENTED THIS SHIFT. PT ABLE TO FREELY CONVERSE AND EXPRESS NEEDS. PT REPORTS HAVING VISITOR DURING THE DAY AND HAVING SUPPORT GROUP CHECK IN ON HER THROUGH PHONE CALLS. PT DENIED PAIN THIS SHIFT, AMBULATED TO BEDSIDE COMMODE AND TOLERATED WELL. NO OUTPUT AT THAT TIME. PT REPORTS WILL TRY AGAIN AT LATER TIME. PT VITAL SIGNS STABLE DURING SHIFT. PT DENIES VERTIGO, BUT STATES, "I STILL FEEL OFF." PT FREE FROM INJURY THIS SHIFT.
[2020-11-26 07:41] VITALS: BP 135/70; PULSE 62; TEMP 98.2
[2020-11-26 08:17] LABS: BASO % 0.7 % (0.0-2.0); EOS # 0.2 (0.0-0.7); EOS % 2.7 % (0-4.0); GRAN # 3.7 (1.4-6.5); GRAN % 66.7 % (42.2-75.2); HEMOGLOBIN 10.6 g/dl (12.5-16.0); LYMPH % 18.3 % (20.0-51.0); MEAN CELL VOLUME 88 fl (80.0-100.0); MEAN CORPUSCULAR HEMOGLOBIN 28 pg (27.0-31.0); MEAN CORPUSCULAR HGB CONC 32 g/dl (33.0-37.0); MEAN PLATELET VOLUME 8.7 fl (7.4-10.4); MONO # 0.6 (0.1-0.6); MONO % 11.2 % (1.7-9.3); PLATELET COUNT 211 K/mm3 (130-400); RED BLOOD COUNT 3.77 M/mm3 (4.10-5.30); REDCELL DISTRIBUTION WIDTH-CV 13.8 % (11.5-14.5)
[2020-11-26 08:28] LABS: CALCIUM 9.1 mg/dL (8.4-10.2); CREATININE, serum 1.66 (0.52-1.25); POTASSIUM 4.7 mmol/L (3.4-5.0)
[2020-11-26 08:39] LABS: HEMATOCRIT 33.3 % (37.0-47.0)
--- NOTE | 2020-11-26 11:27 | NUR ---
The patient is ready to d/c today. Orders were written for outpatient PT. SW's met with the patient to review d/c plan and discuss outpatient PT vs home health. The patient reports that she will be going to stay with her daughter, Carly, in for few days. She states that she will return back to her home in [place] on Tuesday or Tuesday. The patient reports that she would be interested in home health when she returns back to her home and would prefer [facility]. HONORIO contacted and faxed and emailed a referral to Heidy at [facility]. Awaiting screen. HONORIO contacted and updated the patient's daughter, Carly. Carly confirmed the above plan. She reports that she is on her way to the hospital now to machine operator picker the patient.
--- NOTE | 2020-11-26 15:16 | NUR ---
Heidy, at [facility], reports that they are able to accept the patient for services. The patient discharged today, 11/26, to her daughter's home with home health services for fci/PT/OT from [facility]. HONORIO notified and faxed and emailed d/c orders to Heidy at [facility]. No additional needs at this time.
== END 2020-11-26 14:09 | disposition home or self-care (01) ==
LOC: COL.ER 11:48 → MEDICAL 16:54
PROVIDERS: Family Medicine; Physician Assistant; ADMIT Student in an Organized Health Care Education/Training Program
DX: I16.0 Hypertensive urgency (principal); R42 Dizziness and giddiness; R79.89 Other specified abnormal findings of blood chemistry; I10 Essential (primary) hypertension; J45.909 Unspecified asthma, uncomplicated; G62.9 Polyneuropathy, unspecified; K21.9 Gastro-esophageal reflux disease without esophagitis; E78.5 Hyperlipidemia, unspecified; L50.8 Other urticaria; Z79.01 Long term (current) use of anticoagulants; Z79.899 Other long term (current) drug therapy
CPT/HCPCS: G0378; J2405; J7120

== ENCOUNTER → 2021-07-30 | Outpatient (CLI) | payer MEDICARE, BC ==
[~2021-07-30] MED LIST changes: +APRESOLINE 25MG25 MG PO; +BONINE25 MG PO; +COLACE 100100 MG/CAP PO; +PREDFORTE10ML; +PREDFORTE5ML OU; +SINGULAIR 110 MG/TAB PO
== END ==
LOC: MC.RAD 08:46
DX: Z12.31 Encounter for screening mammogram for malignant neoplasm of breast (principal)